=== PATIENT | female | born 1950 | race Caucasian/White ===

== ENCOUNTER 2024-08-28 07:59 | Day surgery (SDC) | payer OTHER ==
[2024-08-28 08:28] LABS: #Basophils 0.08 10x3/uL (0.0-0.2); %Basophils 0.7 % (0.0-1.0); %Eosinophils 2.7 % (0.0-10.0); %Lymphocytes 27.9 % (21.0-51.0); %Neutrophils 61.2 % (42.0-75.0); Hematocrit 44.8 % (36.0-47.0); Hemoglobin 14.1 g/dL (12.0-16.0); Mean Corpuscular HGB CONC 31.5 g/dL (32.0-36.0); Mean Corpuscular Volume 98.5 fL (78.0-98.0); Mean Platelet Volume 9.8 fL (7.4-10.4); Platelet Count 246 10x3/uL (130-400); RBC Distribution Width 16.4 % (11.5-14.5); Red Blood Cell (RBC) Count 4.55 mill/uL (4.20-5.40)
[2024-08-28 08:48] LABS: INR-International Normal Ratio 0.9; PTT 25.6 sec (22.9-36.1); Prothrombin Time 12.4 sec (12.0-14.7)
[2024-08-28] MEDS ORDERED: Lidocaine 1% PF 5 ML VIAL ONE (09:00)
[2024-08-28] MEDS ORDERED: Sodium Bicarbonate 2.5 MEQ/5 ML SDV ONE (09:00)
[2024-08-28] MEDS ORDERED: Iopamidol 100 ML FS ONE ×2 (09:00→11:31)
[2024-08-28] MEDS ORDERED: Midazolam HCl 2 mg/2 ml Vial ONE (10:13)
[2024-08-28] MEDS ORDERED: fentaNYL 50 mcg/mL 1 mL Vial ONE (10:13)
== END 2024-08-28 14:10 | disposition home or self-care (01) ==
LOC: SPEC 07:59
PROVIDERS: ATTEND Internal Medicine Gastroenterology
PROC: 05B Upper Veins, Excision (ICD-10-PCS; principal; 2024-08-28)
DX: R79.89 Other specified abnormal findings of blood chemistry (principal); K80.20 Calculus of gallbladder without cholecystitis without obstruction; E78.00 Pure hypercholesterolemia, unspecified; E07.9 Disorder of thyroid, unspecified; Z98.51 Tubal ligation status; Z79.890 Hormone replacement therapy; Z79.899 Other long term (current) drug therapy; Z87.891 Personal history of nicotine dependence
CPT/HCPCS: 36011; 37200; 75889; 75970; 85025; 85610; 85730; C1769 ×2; C1887; J2250; J3010; Q9967; 88307; 99152; 99153